=== PATIENT | female | born 1985 | race Caucasian/White ===

== ENCOUNTER 2024-11-09 19:19 | Emergency (ER) | payer MEDICAID ==
[~2024-11-09] VITALS: Ht 172.7 cm; Wt 94.3 kg
[2024-11-09 19:29] VITALS: RESP 14
--- NOTE | 2024-11-09 19:56 | Physician Documentation ---
History of Present Illness ~ Chief Complaint: Complications Stated Complaint: LEAKING AMNIOTIC FLUID Time Seen by MD: 19:29 Primary Medical Doctor: DR. FRANCO Mode of Arrival: POV HPI Patient presents to the emergency room at 30 weeks gestational age . Patient is [age] prior to with two ab and one miscarriage. She reports having no complications with this in his established with an OBGYN, Dr. You. Saw Dr. Meyer today with no complaints and routine visit. She reports taking daily vitamin. She reports today she has noticed excessive secretions in his concerned that her water may have broke. She does feel the baby moving. No fevers. No dysuria. Last sexual intercourse this morning. Review of Systems ROS All review of systems negative except as per HPI Physical Exam Physical Exam Vital Signs: Temperature: 97.8, Heart Rate: 89, Respiratory Rate: 14, BP: 131/83, Pulse Oximetry: 99, Weight: 94.350 Oxygen Flow Rate: 0 Physical Exam General: Patient is awake, alert, oriented x4 in no acute distress and well appearing.~ Head: Normocephalic and atraumatic. Eyes: Conjunctival normal. EOMI. PERRL. ENT: Mucous membranes moist. Neck: Supple, trachea is midline. Chest: Clear to auscultation bilaterally without rales, rhonchi, or wheezes. There is no accessory muscle use or retractions. Cardiac: RRR without murmurs, gallops, or rubs. Abd: Soft, nondistended, gravid at 30 cm above the fundus Progress Progress Note Bedside ultrasound performed by myself shows baby moving with heart rate of proximally 150 Vaginal exam: With nurse Maggy at bedside vaginal exam performed with speculum showed minimal pooling in posterior fornix. PH strip of fluid showed pH of between six and seven. No discharge. Normal external female genitalia. No odors Results/Orders Results/Orders Orders - TEOFILO LEROY MD Ua W/Microscopic, Cult If Ind (11/09/24 19:58) Completed Orders - TEOFILO LEROY MD Cbc/Diff (11/09/24 20:12) CMP (11/09/24 20:12) Vital Signs 11/09/24 11/09/24 11/09/24 19:22 19:29 20:03 Temp 97.8 Pulse 89 97 Resp 16 14 B/P (MAP) 131/83 116/68 (84) Pulse Ox 99 100 O2 Flow Rate 0 Laboratory Tests Test 11/09/24 19:37 11/09/24 19:58 White Blood Count 7.0 Red Blood Count 4.01 L Hemoglobin 9.9 L Hematocrit 30.8 L Mean Corpuscular Volume 76.8 L Mean Corpuscular Hemoglobin 24.7 L Mean Corpuscular Hemoglobin Concent 32.1 L Red Cell Distribution Width 15.1 H Platelet Count 298 Mean Platelet Volume 7.7 Neutrophils (%) (Auto) 66.0 Lymphocytes (%) (Auto) 28.9 Monocytes (%) (Auto) 4.2 Eosinophils (%) (Auto) 0.7 Basophils (%) (Auto) 0.2 Neutrophils # (Auto) 4.6 Lymphocytes # (Auto) 2.0 Monocytes # (Auto) 0.3 Eosinophils # (Auto) 0.1 Basophils # (Auto) 0.0 CBC Comment Sodium Level 136 Potassium Level 3.5 Chloride Level 103 Carbon Dioxide Level 24.2 Anion Gap 9 Blood Urea Nitrogen 12 Creatinine 0.73 Estimated GFR/1.73 m2 89 BUN/Creatinine Ratio 16.4 Glucose Level 103 Calcium Level 8.7 Total Bilirubin 0.2 Aspartate Amino Transf (AST/SGOT) 13 Alanine Aminotransferase (ALT/SGPT) 18 Alkaline Phosphatase 76 Total Protein 7.2 Albumin 2.9 L Globulin 4.3 Albumin/Globulin Ratio 0.7 L Chemistry Comments Urine Specimen Description Cln catch midstream Urine Color Yellow Urine Clarity Clear Urine pH 6.0 Urine Specific [place] 1.025 Urine Protein Trace Urine Glucose (UA) Negative Urine Ketones Negative Urine Occult Blood Negative Urine Nitrite Negative Urine Bilirubin Negative Urine Urobilinogen 1.0 Urine Leukocyte Esterase Negative Volume Urine Centrifuged 10 ml Urine Comment Medical Decision Making Findings Patient presents to the emergency room for evaluation of increased vaginal secretions as per HPI. Differentials include but not limited to labor, increased vaginal secretions, urinary tract infection, yeast infection. PH drip is reassuring of vaginal fluid. Bedside ultrasound shows good heart tones. No pain or bleeding. I do not feel patient needs a formal ultrasound. Labs are reassuring. ER precautions discussed as well as the need to follow up with her OBGYN and if any medical emergency regarding OBGYN occurs should go to [facility]. Departure Disposition: HOME / SELF CARE / HOMELESS Impression: Primary Impression: Increased vaginal secretions Condition: Stable Discharge Instructions: ABCs of Additional Instructions: Continue to take your iron supplementation. Follow up with your doctor tomorrow for re-evaluation. If any emergent OBGYN care is necessary police go to a facility such as [facility] that has these services as we do not and would have to arrange for transfer should emergency occur. Referrals: NO PRIMARY CARE PROVIDER (PCP) Signature Scribe Signature: No scribe Attestation: The note accurately reflects work and decisions made by me.Teofilo Leroy MD 11/09/24 20:44 TEOFILO LEROY MD Nov 09, 2024 19:56
[2024-11-09 20:03] VITALS: BP 116/68; PULSE 97; O2SAT 100
[2024-11-09 20:25] LABS: MEAN PLATELET VOLUME 7.7 FL (7.4-10.4); RED CELL DISTRIBUTION WIDTH 15.1 % (11.5-14.5)
[2024-11-09 20:31] LABS: LEUKOCYTE ESTERASE ,URINE NEGATIVE (Neg); NITRITES, URINE NEGATIVE (Neg); OCCULT BLOOD,URINE NEGATIVE (Neg)
[2024-11-09 20:34] LABS: CREATININE 0.73 MG/DL (0.40-0.90); TOTAL CARBON DIOXIDE 24.2 MMOL/L (24-32); eCRCL 105 ML/MIN; eGFR 89 ML/MIN
[2024-11-09 20:35] LABS: UA COLLECTION TYPE CLN CATCH MIDSTREAM
[2024-11-09 20:44] LABS: MUCUS STRANDS MODERATE /LPF (Neg); SQUAMOUS EPITHELIAL CELL,UR MODERATE /LPF (FEW)
[2024-11-09 20:59] VITALS: TEMP 97.8
== END 2024-11-09 21:02 | disposition home or self-care (01) ==
LOC: ER 19:20
DX: O99.891 Other specified diseases and conditions complicating pregnancy (principal); Z3A.30 30 weeks gestation of pregnancy
CPT/HCPCS: 36415; 80053; 81001; 85025; 99284; A6258; J7030